=== PATIENT | female | born 1960 | race Caucasian/White ===

== ENCOUNTER 2017-07-03 23:51 | Emergency (ER) | payer OTHER ==
[2017-07-03 23:57] VITALS: BMI 26.6
[2017-07-04 00:01] VITALS: BP 136/81; RESP 20
[2017-07-04 00:03] VITALS: PULSE 109; O2SAT 96
--- NOTE | 2017-07-04 00:14 | ED PDOC ---
Arrival/HPI - General Historian: Patient - General Chief Complaint: Flu-like Symptoms Time Seen by Provider: 07/04/17 00:05 - History of Present Illness Narrative History of Present Illness (Text): 07/04/17 00:11 57yo female with PMhx of hypertension who present with complaint of nonproductive cough, subjective fever, sore throat, chills, generalized bodyache , decreased appetite x 2days. States she took Tylenol this morning. Denies sick contact, chest pain, SOB, abdominal pain, vomiting, any other complaint. (Marly, Nathan A) Past Medical History - Provider Review Nursing Documentation Reviewed: Yes - Infectious Disease Hx of Infectious Diseases: None - Tetanus Immunization Tetanus Immunization: Unknown - Cardiac Hx Hypertension: Yes - Pulmonary Hx Respiratory Disorders: No - Neurological Hx Neurological Disorder: No - HEENT Hx HEENT Disorder: No - Renal Hx Renal Disorder: No - Endocrine/Metabolic Hx Endocrine Disorders: No - Hematological/Oncological Hx Blood Disorders: No - Integumentary Hx Dermatological Disorder: No - Musculoskeletal/Rheumatological Hx Musculoskeletal Disorders: No Hx Falls: No - Gastrointestinal Hx Gastroesophageal Reflux: Yes - Genitourinary/Gynecological Hx Genitourinary Disorders: No - Psychiatric Hx Psychophysiologic Disorder: No Hx Anxiety: No Hx Bipolar Disorder: No Hx Depression: No Hx Emotional Abuse: No Hx Hallucinations: No Hx Panic Disorder: No Hx Post Traumatic Stress Disorder: No Hx Psychosis: No Hx Physical Abuse: No Hx Schizophrenia: No Hx Sexual Abuse: No Hx Substance Use: No - Past Surgical History Past Surgical History: No Previous - Surgical History Other/Comment: 2 c sections, tummy tuck - Anesthesia Hx Anesthesia: No - Suicidal Assessment Feels Threatened In Home Enviroment: No Family/Social History - Physician Review Nursing Documentation Reviewed: Yes Family/Social History: Unknown Family HX Smoking Status: Light Smoker < 10 Cigarettes Daily Hx Alcohol Use: No Hx Substance Use: No Allergies/Home Meds Allergies/Adverse Reactions: Allergies No Known Allergies Allergy (Verified 07/03/17 23:57) Home Medications: Home Meds Medication Instructions Recorded Confirmed Hydrochlorothiazide [Microzide] 12.5 mg PO DAILY 07/03/17 07/03/17 Lisinopril [Zestril] 2.5 mg PO DAILY 07/03/17 07/03/17 Review of Systems - Physician Review All systems were reviewed & negative as marked: Yes - Review of Systems Constitutional: Fatigue, Fevers Eyes: Normal ENT: Sore Throat Respiratory: Cough. absent: SOB, Sputum, Wheezing Cardiovascular: Normal Gastrointestinal: Normal Genitourinary Female: Normal Musculoskeletal: Normal Skin: Normal Neurological: Normal Endocrine: Normal Hemo/Lymphatic: Normal Psychiatric: Normal Physical Exam Vital Signs Reviewed: Yes Temperature: Febrile Blood Pressure: Normal Pulse: Tachycardic Respiratory Rate: Normal Appearance: Positive for: Well-Appearing, Non-Toxic, Comfortable Pain Distress: None Mental Status: Positive for: Alert and Oriented X 3 - Systems Exam Head: Present: Atraumatic, Normocephalic Pupils: Present: PERRL Extroacular Muscles: Present: EOMI Conjunctiva: Present: Normal Mouth: Present: Moist Mucous Membranes Pharnyx: Present: Normal. No: ERYTHEMA, EXUDATE, TONSILS ENLARGED, Peritonsilar Swelling, Uvular Deviation, Muffled/Hoarse Voice, Strider, Soft Palate/Uvular Edema Neck: Present: Normal Range of Motion Respiratory/Chest: Present: Clear to Auscultation, Good Air Exchange. No: Respiratory Distress, Accessory Muscle Use, Wheezes, Decreased Breath Sounds, Rales, Retracting, Rhonchi Cardiovascular: Present: Regular Rate and Rhythm, Normal S1, S2. No: Murmurs Abdomen: Present: Normal Bowel Sounds. No: Tenderness, Distention, Peritoneal Signs Back: Present: Normal Inspection Upper Extremity: Present: Normal Inspection. No: Cyanosis, Edema Lower Extremity: Present: Normal Inspection. No: Edema Neurological: Present: GCS=15, CN II-XII Intact, Speech Normal Skin: Present: Warm, Dry, Normal Color. No: Rashes Psychiatric: Present: Alert, Oriented x 3, Normal Insight, Normal Concentration Vital Signs Temp Pulse Resp BP Pulse Ox 07/04/17 00:58 99.8 F H 07/04/17 00:14 102.5 F H 07/04/17 00:01 102.4 F H 109 H 20 136/81 96 07/04/17 00:00 102.4 F H 111 H 20 136/81 97 Medical Decision Making ED Course and Treatment: 07/04/17 01:23 PT in ED for stated history. Her VS improved in ED with Ibuprofen 600mg. Rapid flu/strep was negative CXR NAD PT have flu like symptoms. She will be treated and DC home with Tamiflu. Referred to her PMD. Advised to drink plenty of fluid and rest. To take antipyretic every 6hrs as needed for fever. (Nathan Luke) - Lab Interpretations Lab Results: Lab Results 07/04/17 00:08: Grp A Beta Strep Ag Negative 07/04/17 00:08: Influenza Typ A,B (EIA) Negative for flu a/b - RAD Interpretation Radiology Orders: 07/04/17 01:22 CHEST PORTABLE [RAD] Stat - Medication Orders Current Medication Orders: Discontinued Medications Ibuprofen (Motrin Tab) 600 mg PO STAT STA Stop: 07/04/17 00:06 Last Admin: 07/04/17 00:14 Dose: 600 mg MAR Pain/Vitals Document 07/04/17 00:14 SS (Rec: 07/04/17 00:14 SS [id number]) Pain Reassessment Is This A Pain ReAssessment? No Presence of Pain Presence of Pain No Vitals Temperature (97.6 F-99.6 F) 102.5 F Temperature Source Oral Oseltamivir Phosphate (Tamiflu Cap) 75 mg PO BID STA PRN Reason: Protocol Stop: 07/04/17 01:22 Last Admin: 07/04/17 01:29 Dose: 75 mg Disposition/Present on Arrival - Present on Arrival Any Indicators Present on Arrival: No History of DVT/PE: No History of Uncontrolled Diabetes: No Urinary Catheter: No History of Decub. Ulcer: No History Surgical Site Infection Following: None - Disposition Have Diagnosis and Disposition been Completed?: Yes Disposition Time: 01:45 Patient Plan: Discharge - Disposition Diagnosis: Flu-like symptoms Disposition: HOME/ ROUTINE Condition: STABLE Discharge Instructions (ExitCare): Viral Syndrome (DC) Additional Instructions: Follow up with your doctor Return to ED for any new or worsening symptoms Prescriptions: Ibuprofen [Motrin] 600 mg PO Q8 PRN #12 tab PRN Reason: Pain, Moderate (4-7) Oseltamivir Phosphate [Tamiflu] 75 mg PO BID #10 capsule [place] [facility] [place] [facility] [place] - Follow up with primary Forms: [employer] (Malagasy)
[2017-07-04 00:58] VITALS: TEMP 99.8
--- NOTE | 2017-07-04 10:06 | RAD ---
HISTORY: Cough COMPARISON: 12/30/2015. FINDINGS: LUNGS: The lungs are well inflated and clear. PLEURA: No significant pleural effusion identified, no pneumothorax apparent. CARDIOVASCULAR: Normal. OSSEOUS STRUCTURES: No significant abnormalities. VISUALIZED UPPER ABDOMEN: Normal. OTHER FINDINGS: None. IMPRESSION: No active pulmonary disease.
== END 2017-07-04 02:21 | disposition home or self-care (01) ==
LOC: ED 23:51
DX: J11.1 Influenza due to unidentified influenza virus with other respiratory manifestations (principal); F17.210 Nicotine dependence, cigarettes, uncomplicated

== ENCOUNTER 2018-01-18 18:01 | Emergency (ER) | payer OTHER ==
[2018-01-18 18:02] VITALS: BMI 26.6
[2018-01-18 18:13] VITALS: TEMP 99.1
--- NOTE | 2018-01-18 18:48 | ED PDOC ---
Arrival/HPI - General Historian: Patient - History of Present Illness Time/Duration: Other (36 hours) Symptom Onset: Sudden Symptom Course: Unchanged Quality: Other (no pain) <Liborio Landeros - Last Filed: 01/18/18 20:10> <Varinder Shanks - Last Filed: 01/21/18 02:23> - General Chief Complaint: Eye Problem Time Seen by Provider: 01/18/18 18:17 - History of Present Illness Narrative History of Present Illness (Text): 01/18/18 18:44 Patient is a 57 year old female with a past medical history of hypertension and migraines presenting to the emergency department with a complaint of right eye redness. Patient woke up yesterday and noticed that the medial portion of her right eye was red. She denies any trauma to her eye. She does not have any pain and denies any vision changes. She has did not come in yesterday when she noticed it yesterday morning because she thought it would go away. She decided to come in today because it did not improve yesterday and just want to have it checked. Patient also reports a mild headaches that is similar to her normal headaches. She has not taken anything for the headache yet. She has no other complaints at this time. Denies fevers, chills, nausea, vomiting, chest pain, shortness of breath, trauma, vision changes, eye pain, numbness or tingling. ( Liborio Landeros) Past Medical History - Provider Review Nursing Documentation Reviewed: Yes - Infectious Disease Hx of Infectious Diseases: None - Tetanus Immunization Tetanus Immunization: Unknown - Reproductive Menopause: Yes - Cardiac Hx Cardiac Disorders: Yes Hx Hypertension: Yes - Pulmonary Hx Respiratory Disorders: No - Neurological Hx Neurological Disorder: No - HEENT Hx HEENT Disorder: No - Renal Hx Renal Disorder: No - Endocrine/Metabolic Hx Endocrine Disorders: No - Hematological/Oncological Hx Blood Disorders: No - Integumentary Hx Dermatological Disorder: No - Musculoskeletal/Rheumatological Hx Musculoskeletal Disorders: No - Gastrointestinal Hx Gastrointestinal Disorders: Yes Hx Gastroesophageal Reflux: Yes - Genitourinary/Gynecological Hx Genitourinary Disorders: No - Psychiatric Hx Psychophysiologic Disorder: No Hx Substance Use: No - Past Surgical History Past Surgical History: No Previous - Surgical History Hx Section: Yes - Anesthesia Hx Anesthesia: No - Suicidal Assessment Feels Threatened In Home Enviroment: No <Liborio Landeros - Last Filed: 01/18/18 20:10> Family/Social History - Physician Review Nursing Documentation Reviewed: Yes Family/Social History: No Known Family HX Smoking Status: Light Smoker < 10 Cigarettes Daily Hx Alcohol Use: No Hx Substance Use: No <Liborio Landeros - Last Filed: 01/18/18 20:10> Allergies/Home Meds <Liborio Landeros - Last Filed: 01/18/18 20:10> <DimitrisVarinder - Last Filed: 01/21/18 02:23> Allergies/Adverse Reactions: Allergies No Known Allergies Allergy (Verified 01/18/18 18:09) Home Medications: Home Meds Medication Instructions Recorded Confirmed Hydrochlorothiazide [Microzide] 12.5 mg PO DAILY 07/03/17 01/18/18 Lisinopril [Zestril] 2.5 mg PO DAILY 07/03/17 01/18/18 Review of Systems - Review of Systems Constitutional: Normal. absent: Fatigue Eyes: Other (redness of right eye). absent: Vision Changes, Photophobia, Eye Pain ENT: Normal Respiratory: Normal. absent: SOB, Cough Cardiovascular: Normal. absent: Chest Pain Gastrointestinal: Normal. absent: Abdominal Pain, Diarrhea, Nausea Skin: Normal. absent: Rash Neurological: Headache (hx of migraines). absent: Dizziness, Focal Weakness, Gait Changes, Speech Changes, Disequilibrium Endocrine: Normal. absent: Diaphoresis Psychiatric: Normal. absent: Anxiety, Depression <Liborio Landeros - Last Filed: 01/18/18 20:10> Physical Exam Vital Signs Reviewed: Yes Temperature: Afebrile Blood Pressure: Hypertensive Pulse: Regular Respiratory Rate: Normal Appearance: Positive for: Well-Appearing (laughing with daughter in room), Non- Toxic, Comfortable Pain Distress: None Mental Status: Positive for: Alert and Oriented X 3 - Systems Exam Head: Present: Atraumatic, Normocephalic Pupils: Present: PERRL. No: Sluggish, Non-Reactive, Pinpoint Extroacular Muscles: Present: EOMI. No: Gaze Palsy, Entrapment Conjunctiva: Present: Other (subconjunctival hemorrhage of the medial aspect of right eye). No: Injected, Icteric Nose (External): Present: Atraumatic Nose (Internal): Present: Normal Inspection, No Active Bleeding, Moist Neck: Present: Normal Range of Motion Respiratory/Chest: Present: Clear to Auscultation, Good Air Exchange. No: Respiratory Distress, Accessory Muscle Use Cardiovascular: Present: Regular Rate and Rhythm, Normal S1, S2. No: Murmurs Neurological: Present: GCS=15, CN II-XII Intact, Speech Normal, Motor Func Grossly Intact Skin: Present: Warm, Dry, Normal Color. No: Rashes Psychiatric: Present: Alert, Oriented x 3, Normal Insight, Normal Concentration , Normal Affect, Normal Mood <Liborio Landeros - Last Filed: 01/18/18 20:10> Vital Signs Temp Pulse Resp BP Pulse Ox 01/18/18 19:04 82 18 128/78 98 01/18/18 18:09 99.1 F 96 H 16 141/91 H 99 Medical Decision Making <Liborio Landeros - Last Filed: 01/18/18 20:10> <Varinder Shanks - Last Filed: 01/21/18 02:23> ED Course and Treatment: 01/18/18 18:49 Patient is a 57 year old female presenting with a complaint of right eye redness. Patient appears comfortable and is joking around, playing with her daughter at bedside, reporting a mild headache (similar to normal headaches). Visual arora intact, EOMI, PERRLA Visual Acuity (w/ eyeglasses): - Left 20/20 - Right 20/25 - Both 20/20 Denies any pain with right eye. Patient has subconjunctival hemorrhage of the right eye. Patient given Tylenol for mild headache. Instructed patient to follow with ophthalmology and discharged home with a prescription for fioricet for migraines prn. No labs/imaging indicated. (Liborio Landeros) - Medication Orders Current Medication Orders: Discontinued Medications Acetaminophen (Tylenol 325mg Tab) 650 mg PO STAT STA Stop: 01/18/18 18:57 Last Admin: 01/18/18 19:01 Dose: 650 mg MAR Pain/Vitals Document 01/18/18 19:01 GMD (Rec: 01/18/18 19:01 D [id number]) Pain Reassessment Is This A Pain ReAssessment? No Presence of Pain Presence of Pain Yes Pain Scale Used Pain Scale Used Numeric Location Left, Right or Bilateral Right Pain Location Body Site Eye - PA / BUTCHER ASSISTANT / Resident Statement MD/DO has reviewed & agrees with the documentation as recorded. <Varinder Shanks - Last Filed: 01/21/18 02:23> Disposition/Present on Arrival - Present on Arrival Any Indicators Present on Arrival: No History of DVT/PE: No History of Uncontrolled Diabetes: No Urinary Catheter: No History of Decub. Ulcer: No History Surgical Site Infection Following: None - Disposition Have Diagnosis and Disposition been Completed?: Yes Disposition Time: 18:54 Patient Plan: Discharge <Liborio Landeros - Last Filed: 01/18/18 20:10> <Varinder Shanks - Last Filed: 01/21/18 02:23> - Disposition Diagnosis: Subconjunctival hemorrhage Disposition: HOME/ ROUTINE Condition: GOOD Discharge Instructions (ExitCare): Migraine Headache (DC), Subconjunctival Hemorrhage Print Language: SERBIAN Prescriptions: Acetaminophen/Butalbital/Caf [Fioricet] 1 tab PO Q8 PRN #15 tab PRN Reason: Headache Referrals: Nasir Lane MD [Staff Provider] - Follow up with primary Forms: [employer] ([place]ese)
[2018-01-18 19:04] VITALS: BP 128/78; PULSE 82; RESP 18; O2SAT 98
== END 2018-01-18 19:13 | disposition home or self-care (01) ==
LOC: ED 18:01
DX: H11.31 Conjunctival hemorrhage, right eye (principal)

== ENCOUNTER 2018-04-11 20:38 | Emergency (ER) | payer OTHER ==
[2018-04-11 20:52] VITALS: RESP 18; TEMP 98.5; O2SAT 100; BMI 27.3
--- NOTE | 2018-04-11 21:02 | ED PDOC ---
Arrival/HPI - General Chief Complaint: Lower Extremity Problem/Injury Time Seen by Provider: 04/11/18 20:55 Historian: Patient EM Caveat: Language Barrier - History of Present Illness Narrative History of Present Illness (Text): 57 y/o female with PMH of chronic back pain presents to the ED c/o left hip pain s/p injury at work. Pt states a motorized hand truck struck her in the left side, causing immediate pain to the left hip and lower back. Denies head strike or LOC. Pt able to ambulate without difficulty. Took 2 advil at work today without relief. Denies numbness, paresthesias, saddle anesthesia, incontinence, abdominal pain, or any other associated symptoms. Past Medical History - Provider Review Nursing Documentation Reviewed: Yes - Infectious Disease Hx of Infectious Diseases: None - Tetanus Immunization Tetanus Immunization: Unknown - Cardiac Hx Cardiac Disorders: Yes Hx Hypertension: Yes - Pulmonary Hx Respiratory Disorders: No - Neurological Hx Neurological Disorder: No - HEENT Hx HEENT Disorder: No - Renal Hx Renal Disorder: No - Endocrine/Metabolic Hx Endocrine Disorders: No - Hematological/Oncological Hx Blood Disorders: No - Integumentary Hx Dermatological Disorder: No - Musculoskeletal/Rheumatological Hx Musculoskeletal Disorders: No - Gastrointestinal Hx Gastrointestinal Disorders: Yes Hx Gastroesophageal Reflux: Yes - Genitourinary/Gynecological Hx Genitourinary Disorders: No - Psychiatric Hx Psychophysiologic Disorder: No Hx Substance Use: No - Past Surgical History Past Surgical History: No Previous - Surgical History Hx Section: Yes - Anesthesia Hx Anesthesia: No - Suicidal Assessment Feels Threatened In Home Enviroment: No Family/Social History - Physician Review Nursing Documentation Reviewed: Yes Family/Social History: No Known Family HX Smoking Status: Light Smoker < 10 Cigarettes Daily Hx Alcohol Use: No Hx Substance Use: No Allergies/Home Meds Allergies/Adverse Reactions: Allergies No Known Allergies Allergy (Verified 04/11/18 20:46) Home Medications: Home Meds Medication Instructions Recorded Confirmed Hydrochlorothiazide [Microzide] 12.5 mg PO DAILY 07/03/17 04/11/18 Lisinopril [Zestril] 2.5 mg PO DAILY 07/03/17 04/11/18 Review of Systems - Physician Review All systems were reviewed & negative as marked: Yes - Review of Systems Constitutional: Normal Eyes: Normal. absent: Vision Changes ENT: Normal. absent: Sinus Congestion Respiratory: Normal. absent: SOB, Cough Cardiovascular: Normal. absent: Chest Pain, Palpitations, Syncope Gastrointestinal: Normal. absent: Abdominal Pain, Nausea, Vomiting Genitourinary Female: Normal. absent: Dysuria, Frequency, Urine Output Changes Musculoskeletal: Arthralgias (left hip), Back Pain (lower left). absent: Neck Pain Skin: Normal. absent: Other (bruising) Neurological: Normal. absent: Headache, Dizziness Endocrine: Normal Hemo/Lymphatic: Normal Psychiatric: Normal Physical Exam Vital Signs Reviewed: Yes Vital Signs Temp Pulse Resp BP Pulse Ox 04/11/18 20:46 98.5 F 81 18 151/94 H 100 Temperature: Afebrile Blood Pressure: Hypertensive Pulse: Regular Respiratory Rate: Normal Appearance: Positive for: Well-Appearing, Non-Toxic, Comfortable Pain Distress: None Mental Status: Positive for: Alert and Oriented X 3 - Systems Exam Head: Present: Atraumatic, Normocephalic Pupils: Present: PERRL Extroacular Muscles: Present: EOMI Conjunctiva: Present: Normal Mouth: Present: Moist Mucous Membranes Pharnyx: Present: Normal Nose (External): Present: Atraumatic Nose (Internal): Present: Normal Inspection Neck: Present: Normal Range of Motion Respiratory/Chest: Present: Clear to Auscultation, Good Air Exchange. No: Respiratory Distress, Accessory Muscle Use Cardiovascular: Present: Regular Rate and Rhythm, Normal S1, S2. No: Murmurs Abdomen: Present: Normal Bowel Sounds. No: Tenderness, Distention, Peritoneal Signs Back: Present: Normal Inspection, Paraspinal Tenderness (left lumbar paraspinal tenderness) Upper Extremity: Present: Normal Inspection, Normal ROM, NORMAL PULSES, Neurovascularly Intact, Capillary Refill < 2s, Other (strength 5/5 bilaterally). No: Cyanosis, Edema, Tenderness, Swelling Lower Extremity: Present: Normal Inspection, NORMAL PULSES, Normal ROM, Tenderness (left lateral hip), Neurovascularly Intact, Capillary Refill < 2 s, Other (strength 5/5 bilaterally). No: Edema, Swelling, Deformity Neurological: Present: GCS=15, CN II-XII Intact, Speech Normal, Motor Func G rossly Intact, Normal Sensory Function, Gait Normal, Memory Normal Skin: Present: Warm, Dry, Normal Color. No: Rashes Psychiatric: Present: Alert, Oriented x 3, Normal Insight, Normal Concentration Medical Decision Making ED Course and Treatment: Initial Plan: * Lumbar Spine XR * Left Hip XR * Tylenol * Lidoderm patch Patient reports resolution of pain after medication. Xrays read by me and Dr. Rosa as negative for acute pathology. Plan of care discussed with patient, and strict instructions given regarding prescriptions, importance of follow up, and signs to return to Emergency Department, to include numbness, paresthesias, worsening pain, or any other new/worsening symptoms. Patient verbalizes understanding of discussion. Patient A&Ox3, ambulating with steady gait, stable for discharge home. Disposition/Present on Arrival - Present on Arrival Any Indicators Present on Arrival: No History of DVT/PE: No History of Uncontrolled Diabetes: No Urinary Catheter: No History of Decub. Ulcer: No History Surgical Site Infection Following: None - Disposition Have Diagnosis and Disposition been Completed?: Yes Diagnosis: Left hip pain Disposition: HOME/ ROUTINE Disposition Time: 22:35 Condition: IMPROVED Discharge Instructions (ExitCare): Hip Pain (DC) Print Language: ALBANIAN Additional Instructions: Ken naproxeno diariamente con alimentos segn sea necesario para el dolor. Seguimiento con mdico primario en 2 viera. Volver a la brittney de emergencias para los sntomas nuevos / que empeoran Prescriptions: Naproxen [Naprosyn] 500 mg PO DAILY PRN #14 tablet PRN Reason: Pain, Moderate (4-7) Referrals: Adelfo Paula III, MD [Medical Doctor] - Follow up with primary Forms: [employer] (Gabonese), WORK NOTE
[2018-04-11] MEDS ORDERED: Lidocaine 5% Patch TD STA (21:10)
[2018-04-11 23:34] VITALS: BP 145/79; PULSE 85
--- NOTE | 2018-04-12 08:23 | RAD ---
Date of service: 04/11/2018 PROCEDURE: Radiographs of the Lumbar Spine. HISTORY: trauma r/o fracture COMPARISON: No prior. FINDINGS: BONES: Normal alignment. No listhesis. No fracture. DISC SPACES: Unremarkable. OTHER FINDINGS: None. IMPRESSION: Unremarkable radiographs of the lumbar spine.
--- NOTE | 2018-04-12 08:24 | RAD ---
PROCEDURE: Left Hip and pelvis x-ray Radiographs. HISTORY: trauma r/o fracture COMPARISON: None. FINDINGS: BONES: Normal. No fracture. JOINTS: Normal. SOFT TISSUES: Normal. OTHER FINDINGS: None. IMPRESSION: Negative study
== END 2018-04-11 22:45 | disposition home or self-care (01) ==
LOC: ED 20:38
DX: M25.552 Pain in left hip (principal)

== ENCOUNTER 2018-05-04 23:48 | Emergency (ER) | payer OTHER ==
[2018-05-04 23:49] VITALS: BMI 26.6
[2018-05-05 00:04] VITALS: RESP 18; TEMP 98.5
--- NOTE | 2018-05-05 00:31 | ED PDOC ---
Arrival/HPI <Molina Madsen - Last Filed: 05/05/18 00:53> - General Historian: Patient - History of Present Illness Narrative History of Present Illness (Text): 05/05/18 00:29 37-year-old female w/ PMH of HTN, complains of 2 day history of tactile fever, runny nose, nasal congestion, dry cough, sore throat and raspy voice. Otherwise: (-) headache, (-) rash, (-) dysphagia, (-) SOB, (-) chest pain, (-) N/V/D, (-) abdominal pain, (-) flank pain, (-) urinary symptoms, (-) recent travel, (-) sick contacts. <Dena Ramos PA-C - Last Filed: 05/05/18 01:35> - General Chief Complaint: Cough, Cold, Congestion Time Seen by Provider: 05/04/18 23:55 Past Medical History - Infectious Disease Hx of Infectious Diseases: None - Tetanus Immunization Tetanus Immunization: Unknown - Cardiac Hx Cardiac Disorders: Yes Hx Hypertension: Yes - Pulmonary Hx Respiratory Disorders: No - Neurological Hx Neurological Disorder: No - HEENT Hx HEENT Disorder: No - Renal Hx Renal Disorder: No - Endocrine/Metabolic Hx Endocrine Disorders: No - Hematological/Oncological Hx Blood Disorders: No - Integumentary Hx Dermatological Disorder: No - Musculoskeletal/Rheumatological Hx Musculoskeletal Disorders: No - Gastrointestinal Hx Gastrointestinal Disorders: Yes Hx Gastroesophageal Reflux: Yes - Genitourinary/Gynecological Hx Genitourinary Disorders: No - Psychiatric Hx Psychophysiologic Disorder: No Hx Substance Use: No - Past Surgical History Past Surgical History: No Previous - Surgical History Hx Section: Yes - Anesthesia Hx Anesthesia: No - Suicidal Assessment Feels Threatened In Home Enviroment: No <Dena Ramos PA-C - Last Filed: 05/05/18 01:35> Family/Social History Family/Social History: No Known Family HX Smoking Status: Light Smoker < 10 Cigarettes Daily Hx Alcohol Use: No Hx Substance Use: No <Dena Ramos PA-C - Last Filed: 05/05/18 01:35> Allergies/Home Meds <Molina Madsen - Last Filed: 05/05/18 00:53> <Dena Ramos PA-C. - Last Filed: 05/05/18 01:35> Allergies/Adverse Reactions: Allergies No Known Allergies Allergy (Verified 04/11/18 20:46) Home Medications: Home Meds Medication Instructions Recorded Confirmed Hydrochlorothiazide [Microzide] 12.5 mg PO DAILY 07/03/17 04/11/18 Lisinopril [Zestril] 2.5 mg PO DAILY 07/03/17 04/11/18 Review of Systems - Review of Systems Constitutional: absent: Fatigue, Fevers ENT: Sore Throat, Rhinorrhea, Sinus Congestion Respiratory: Cough. absent: SOB Cardiovascular: absent: Chest Pain, Palpitations Gastrointestinal: absent: Abdominal Pain, Nausea, Vomiting Musculoskeletal: absent: Arthralgias, Back Pain, Neck Pain Skin: absent: Rash, Pruritis, Skin Lesions Neurological: absent: Headache, Dizziness <Dena Ramos PA-C - Last Filed: 05/05/18 01:35> Physical Exam Vital Signs Temp Pulse Resp BP Pulse Ox 05/05/18 00:04 98.5 F 88 18 113/86 100 <Molina Madsen - Last Filed: 05/05/18 00:53> Vital Signs Temp Pulse Resp BP Pulse Ox 05/05/18 00:04 98.5 F 88 18 113/86 100 Temperature: Afebrile Blood Pressure: Normal Pulse: Regular Respiratory Rate: Normal Appearance: Positive for: Well-Appearing, Non-Toxic, Comfortable Pain Distress: None Mental Status: Positive for: Alert and Oriented X 3 - Systems Exam Head: Present: Atraumatic, Normocephalic Pupils: Present: PERRL Extroacular Muscles: Present: EOMI Conjunctiva: Present: Normal Ears: Present: Normal, NORMAL TM. No: Erythema Mouth: Present: Moist Mucous Membranes Pharnyx: Present: ERYTHEMA, TONSILS ENLARGED, Other (+hoarse voice). No: EXUDATE, Peritonsilar Swelling, Uvular Deviation, Strider Neck: Present: Normal Range of Motion. No: Meningeal Signs, Lymphadenopathy Respiratory/Chest: Present: Clear to Auscultation, Good Air Exchange. No: Respiratory Distress, Accessory Muscle Use Cardiovascular: Present: Regular Rate and Rhythm, Normal S1, S2. No: Murmurs Abdomen: No: Tenderness, Distention, Peritoneal Signs Back: Present: Normal Inspection Upper Extremity: Present: Normal Inspection. No: Cyanosis, Edema Lower Extremity: Present: Normal Inspection. No: Edema Neurological: Present: GCS=15, CN II-XII Intact, Speech Normal Skin: Present: Warm, Dry, Normal Color. No: Rashes Psychiatric: Present: Alert, Oriented x 3, Normal Insight, Normal Concentration <Dena Ramos PA-C - Last Filed: 05/05/18 01:35> Medical Decision Making ED Course and Treatment: 05/05/18 00:28 Plan : - Strep - Flu Flu (-) Strep (-) On reevaluation, patient remains awake alert and oriented 3 in no acute distress, no drooling, speaking in full sentences. Diagnostic results d/w the patient. Diagnosis of viral pharyngitis d/w the patient. Advised to follow up with primary care physician in 1-2 days without fail. Advised to take otc motrin/tylenol for pain. Return to the emergency room at any time for any new or worsening symptoms. Patient states she fully agrees with and understands discharge instructions. States that she agrees with the plan and disposition. Verbalized and repeated discharge instructions and plan. I have given the patient opportunity to ask any additional questions. <Dena Ramos PA-C - Last Filed: 05/05/18 01:35> - PA / CAR FRAMER / Resident Statement MEL has reviewed & agrees with the documentation as recorded. <Molina Madsen - Last Filed: 05/05/18 00:53> - PA / CAR FRAMER / Resident Statement MEL has reviewed & agrees with the documentation as recorded. <Dena Ramos PA-C - Last Filed: 05/05/18 01:35> Disposition/Present on Arrival <Molina Madsen - Last Filed: 05/05/18 00:53> - Present on Arrival Any Indicators Present on Arrival: No History of DVT/PE: No History of Uncontrolled Diabetes: No Urinary Catheter: No History of Decub. Ulcer: No History Surgical Site Infection Following: None - Disposition Have Diagnosis and Disposition been Completed?: Yes Disposition Time: 01:15 Patient Plan: Discharge <Dena Ramos PA-C - Last Filed: 05/05/18 01:35> - Disposition Diagnosis: Pharyngitis Disposition: HOME/ ROUTINE Patient Problems: Current Active Problems Problem Status Onset Pharyngitis Acute Condition: STABLE Discharge Instructions (ExitCare): Viral Pharyngitis (DC) Additional Instructions: Thank you for letting us take care of you today. You were treated for phary ngitis. The emergency medical care you received today was directed at your acute symptoms. If you were prescribed any medication, please fill it and take as directed. It may take several days for your symptoms to resolve. Return to the Emergency Department if your symptoms worsen, do not improve, or if you have any other problems. Please contact your doctor in 2 days for re-evaluation and follow up. Bring any paperwork you were given at discharge with you along with any medications you are taking to your follow up visit. Our treatment cannot replace ongoing medical care by a primary care provider (PCP) outside of the emergency department. Thank you for allowing the [facility] team to be part of your care today. Prescriptions: Fluticasone Propionate [Flonase] 2 spr LEEANNE DAILY #1 bottle Guaifenesin [Adult Tussin Chest Congestion] 200 mg PO Q6H PRN #200 ml PRN Reason: Cough Ibuprofen [Motrin Tab] 600 mg PO QID PRN #20 tab PRN Reason: Fever >100.4 F Forms: [facility] ([place]), WORK NOTE
[2018-05-05 06:42] VITALS: BP 115/68; PULSE 81; O2SAT 99
== END 2018-05-05 01:40 | disposition home or self-care (01) ==
LOC: ED 23:48
DX: J02.9 Acute pharyngitis, unspecified (principal); I10 Essential (primary) hypertension; F17.210 Nicotine dependence, cigarettes, uncomplicated